=== PATIENT | male | born 1970 | race Caucasian/White ===

== ENCOUNTER 2016-12-25 19:01 | Inpatient (IN) | payer MEDICAID, MEDICARE ==
[2016-12-25] MEDS ORDERED: SODIUM CHLORIDE 0.9% 500 ML IV STA (19:48)
[2016-12-25] MEDS ORDERED: ONDANSETRON 4 MG/2 ML VIAL IVP STA (19:48)
--- NOTE | 2016-12-25 19:51 | ED ---
Nausea/Vomiting/Diarrhea HPI - General Chief complaint: Nausea/Vomiting/Diarrhea Stated complaint: vomiting Time Seen by Provider: 12/25/16 19:34 Source: patient Mode of arrival: ambulatory Limitations: no limitations - History of Present Illness Initial comments: 46-year-old male onset 3:00 in the morning of nausea. Several times no diarrhea no distinct fever or chills did not eat anywhere daughter has similar episode but they did not eat same food. Has insulin-dependent diabetes sugar was low this morning. He's had several brief chest pain lasting seconds. No shortness of breath history of atrial fibrillation on Xarelto, metoprolol 50 mg twice a day and lisinopril 20 mg daily for hypertension. Said no blood in the stool black stools. - Related Data Home Medications Medication Instructions Recorded Confirmed Lisinopril [Zestril] 5 mg PO BID 05/15/14 12/25/16 Rivaroxaban [Xarelto] 20 mg PO DAILY 05/15/14 12/25/16 Atorvastatin Calcium [Lipitor] 20 mg PO DAILY 12/25/16 12/25/16 Escitalopram Oxalate [Lexapro] 20 mg PO DAILY 12/25/16 12/25/16 Furosemide [Lasix] 20 mg PO Q48H 12/25/16 12/25/16 Insulin NPH Hum/Reg Insulin Hm 0 unit SQ AC-TID 12/25/16 12/25/16 [NovoLIN 70-30 100 UNIT/ML VIAL] Levothyroxine Sodium [Synthroid] 75 mcg PO DAILY 12/25/16 12/25/16 Previous Rx's Medication Instructions Recorded Metoprolol Tartrate [Lopressor] 50 mg PO BID #60 tab 04/27/14 Allergies Allergy/AdvReac Type Severity Reaction Status Date / Time diazepam [From Valium] Allergy Anaphylaxis Verified 12/25/16 19:52 fentanyl Allergy Anaphylaxis Verified 12/25/16 19:52 ketamine Allergy Anaphylaxis Verified 12/25/16 19:52 anesthetic Allergy Severe Anaphylaxis Uncoded 12/25/16 19:12 Review of Systems ROS Statement: Those systems with pertinent positive or pertinent negative responses have been documented in the HPI. ROS Other: All systems not noted in ROS Statement are negative. Constitutional: Denies: fever, chills Eyes: Denies: eye discharge ENT: Denies: ear pain, throat pain Respiratory: Denies: cough Cardiovascular: Reports: chest pain Gastrointestinal: Reports: nausea, vomiting. Denies: abdominal pain, diarrhea Genitourinary: Denies: urgency, frequency Skin: Denies: rash Neurological: Denies: headache Psychiatric: Denies: anxiety, depression Hematological/Lymphatic: Denies: swollen glands Past Medical History Past Medical History: Atrial Fibrillation, Diabetes Mellitus Additional Past Medical History / Comment(s): throat ca History of Any Multi-Drug Resistant Organisms: None Reported Past Surgical History: Heart Catheterization, Tonsillectomy Past Anesthesia/Blood Transfusion Reactions: Previous Problems w/ Anesthesia Past Psychological History: Depression Smoking Status: Former smoker Past Alcohol Use History: None Reported Past Drug Use History: None Reported - Past Family History Father Family Medical History: Congestive Heart Failure (CHF) Additional Family Medical History / Comment(s): pasted away from CHF Mother Family Medical History: COPD General Exam Limitations: no limitations General appearance: alert, in no apparent distress Head exam: Present: atraumatic Eye exam: Present: normal appearance, PERRL, EOMI ENT exam: Present: normal oropharynx, mucous membranes moist, TM's normal bilaterally Neck exam: Present: normal inspection Respiratory exam: Present: normal lung sounds bilaterally Cardiovascular Exam: Present: tachycardia, irregular rhythm, normal heart sounds GI/Abdominal exam: Present: soft, normal bowel sounds Neurological exam: Present: alert, CN II-XII intact Psychiatric exam: Present: normal affect, normal mood Skin exam: Present: warm, dry Course Vital Signs 12/25/16 12/25/16 12/25/16 19:10 20:09 21:32 Temperature 98.1 F 100.4 F H Pulse Rate 107 H 106 H 102 H Respiratory 20 18 16 Rate Blood Pressure 112/55 120/55 111/57 O2 Sat by Pulse 99 96 94 L Oximetry 12/25/16 22:25 Temperature Pulse Rate 96 Respiratory 20 Rate Blood Pressure 96/58 O2 Sat by Pulse 88 L Oximetry Medical Decision Making - Medical Decision Making Patient's white count was elevated developed a cough and phlegm chest x-ray shows a lower lobe pneumonia, patient's blood pressure has dropped been given fluids will admit to the covering doctor for Dr. Veliz atrial fibrillation with well-controlled rate were not able to give his metoprolol because of the blood pressure drop, he is given Rocephin and Zithromax and will be admitted - Lab Data Result diagrams: 12/25/16 21:42 12/25/16 21:42 Lab Results 12/25/16 12/25/16 12/25/16 Range/Units 19:47 19:47 21:42 WBC 21.9 H 21.1 H (3.8-10.6) k/uL RBC 5.04 4.68 (4.30-5.90) m/uL Hgb 13.8 13.5 (13.0-17.5) gm/dL Hct 44.4 40.7 (39.0-53.0) % MCV 88.0 87.0 (80.0-100.0) fL MCH 27.4 28.9 (25.0-35.0) pg MCHC 31.1 33.2 (31.0-37.0) g/dL RDW 13.2 13.2 (11.5-15.5) % Plt Count 232 195 (150-450) k/uL Neutrophils % 89 88 % Lymphocytes % 3 4 % Monocytes % 6 6 % Eosinophils % 0 0 % Basophils % 0 0 % Neutrophils # 19.6 H 18.5 H (1.3-7.7) k/uL Lymphocytes # 0.7 L 0.9 L (1.0-4.8) k/uL Monocytes # 1.3 H 1.2 H (0-1.0) k/uL Eosinophils # 0.1 0.1 (0-0.7) k/uL Basophils # 0.1 0.1 (0-0.2) k/uL Sodium 132 L (137-145) mmol/L Potassium 6.0 H (3.5-5.1) mmol/L Chloride 96 L (98-107) mmol/L Carbon Dioxide 26 (22-30) mmol/L Anion Gap 10 mmol/L BUN 25 H (9-20) mg/dL Creatinine 1.11 (0.66-1.25) mg/dL Est GFR (MDRD) Af Amer >60 (>60 ml/min/1.73 sqM) Est GFR (MDRD) Non-Af >60 (>60 ml/min/1.73 sqM) Glucose 232 H (74-99) mg/dL POC Glucose (mg/dL) (75-99) mg/dL POC Glu Range Aid ID Calcium 8.6 (8.4-10.2) mg/dL Total Bilirubin 1.1 (0.2-1.3) mg/dL AST 24 (17-59) U/L ALT 25 (21-72) U/L Alkaline Phosphatase 53 (38-126) U/L Total Creatine Kinase (55-170) U/L CK-MB (CK-2) (0.0-2.4) ng/mL CK-MB (CK-2) Rel Index Troponin I (0.000-0.034) ng/mL Total Protein 6.5 (6.3-8.2) g/dL Albumin 3.5 (3.5-5.0) g/dL Amylase <30 L (30-110) U/L Lipase 50 (23-300) U/L 12/25/16 12/25/16 12/25/16 Range/Units 21:42 21:42 21:57 WBC (3.8-10.6) k/uL RBC (4.30-5.90) m/uL Hgb (13.0-17.5) gm/dL Hct (39.0-53.0) % MCV (80.0-100.0) fL MCH (25.0-35.0) pg MCHC (31.0-37.0) g/dL RDW (11.5-15.5) % Plt Count (150-450) k/uL Neutrophils % % Lymphocytes % % Monocytes % % Eosinophils % % Basophils % % Neutrophils # (1.3-7.7) k/uL Lymphocytes # (1.0-4.8) k/uL Monocytes # (0-1.0) k/uL Eosinophils # (0-0.7) k/uL Basophils # (0-0.2) k/uL Sodium (137-145) mmol/L Potassium 5.9 H (3.5-5.1) mmol/L Chloride (98-107) mmol/L Carbon Dioxide (22-30) mmol/L Anion Gap mmol/L BUN (9-20) mg/dL Creatinine (0.66-1.25) mg/dL Est GFR (MDRD) Af Amer (>60 ml/min/1.73 sqM) Est GFR (MDRD) Non-Af (>60 ml/min/1.73 sqM) Glucose (74-99) mg/dL POC Glucose (mg/dL) 212 H (75-99) mg/dL POC Glu Range Aid ID Mattie Pradhan Calcium (8.4-10.2) mg/dL Total Bilirubin (0.2-1.3) mg/dL AST (17-59) U/L ALT (21-72) U/L Alkaline Phosphatase (38-126) U/L Total Creatine Kinase 243 H (55-170) U/L CK-MB (CK-2) 2.2 (0.0-2.4) ng/mL CK-MB (CK-2) Rel Index 0.9 Troponin I <0.012 (0.000-0.034) ng/mL Total Protein (6.3-8.2) g/dL Albumin (3.5-5.0) g/dL Amylase (30-110) U/L Lipase (23-300) U/L - EKG Data -: EKG Interpreted by Me 12/25/16 19:51 EKG 12/25/2016 1922 ventricular rate [address] interval not applicable, curious duration 82 ms QT interval 324 ms atrial fibrillation with rapid ventricular rate right superior axis deviation nonspecific ST-T abnormality Disposition Clinical Impression: Pneumonia Disposition: ADMITTED IP TO THIS HOSP Condition: Fair Referrals: Booker Veliz MD [Primary Care Provider] - 1-2 days Time of Disposition: 22:39
[2016-12-25 20:19] LABS: ALT 25 U/L (21-72); AST 24 U/L (17-59); Alkaline Phosphatase 53 U/L (38-126); Amylase <30 U/L (30-110); Anion Gap 10 mmol/L; Blood Urea Nitrogen 25 mg/dL (9-20); Calcium 8.6 mg/dL (8.4-10.2); Carbon Dioxide 26 mmol/L (22-30); Chloride 96 mmol/L (98-107); Glucose 232 mg/dL (74-99); Non-African American GFR(MDRD) >60 (>60 ml/min/1.73 sqM); Sodium 132 mmol/L (137-145); Total Bilirubin 1.1 mg/dL (0.2-1.3); Total Protein 6.5 g/dL (6.3-8.2)
[2016-12-25 20:22] LABS: Basophils # (A) 0.1 k/uL (0-0.2); Basophils % (A) 0 %; CH 28.3; CHCM 32.2; Eosinophils # (A) 0.1 k/uL (0-0.7); Eosinophils % (A) 0 %; HCT 44.4 % (39.0-53.0); HDW 2.44; HGB 13.8 gm/dL (13.0-17.5); Luc # (Auto) 0.26; Luc % (Auto) 1; Lymphocytes # (A) 0.7 k/uL (1.0-4.8); Lymphocytes % (A) 3 %; MCH 27.4 pg (25.0-35.0); MCHC 31.1 g/dL (31.0-37.0); Mean Platelet Volume 8.2; Monocytes # (A) 1.3 k/uL (0-1.0); Monocytes % (A) 6 %; Neutrophils # (A) 19.6 k/uL (1.3-7.7); Neutrophils % (A) 89 %; RBC 5.04 m/uL (4.30-5.90); RDW 13.2 % (11.5-15.5); WBC 21.9 k/uL (3.8-10.6); WBC (Perox) 22.23
[2016-12-25] MEDS ORDERED: METOPROLOL TARTRATE 50 MG TAB PO STA (21:36)
[2016-12-25] MEDS ORDERED: INSULIN LISPRO (humaLOG) 300 UNIT/3 ML VIAL SQ ONE (21:36)
[2016-12-25 21:50] LABS: Basophils # (A) 0.1 k/uL (0-0.2); Basophils % (A) 0 %; CH 28.4; CHCM 32.8; Eosinophils # (A) 0.1 k/uL (0-0.7); Eosinophils % (A) 0 %; HCT 40.7 % (39.0-53.0); HDW 2.43; HGB 13.5 gm/dL (13.0-17.5); Luc # (Auto) 0.34; Luc % (Auto) 2; Lymphocytes # (A) 0.9 k/uL (1.0-4.8); Lymphocytes % (A) 4 %; MCH 28.9 pg (25.0-35.0); MCHC 33.2 g/dL (31.0-37.0); Mean Platelet Volume 8.1; Monocytes # (A) 1.2 k/uL (0-1.0); Monocytes % (A) 6 %; Neutrophils # (A) 18.5 k/uL (1.3-7.7); Neutrophils % (A) 88 %; RBC 4.68 m/uL (4.30-5.90); RDW 13.2 % (11.5-15.5); WBC 21.1 k/uL (3.8-10.6); WBC (Perox) 20.89
--- NOTE | 2016-12-25 21:55 | XR ---
EXAMINATION TYPE: XR chest 2V DATE OF EXAM: 12/25/2016 9:47 PM COMPARISON: 04/23/2014 HISTORY: Palpitations. TECHNIQUE: Frontal and lateral views of the chest are obtained. FINDINGS: There is a patchy pneumonic consolidation in the left mid and lower lung field. The right lung is relatively clear. There is no heart failure. There are no hilar masses. Heart size is normal. There are chest leads. There is no evidence of pleural effusion. Bony thorax is intact. IMPRESSION: There is left lower lobe pneumonia that is new compared to last exam. There is probably also a small pneumonia in the right upper lobe. Normal heart.
[2016-12-25 21:59] LABS: Glucose,Whole Blood 212 mg/dL (75-99)
[2016-12-25 22:12] LABS: Creatine Kinase 243 U/L (55-170)
[2016-12-25 22:25] LABS: Creatine Kinase MB 2.2 ng/mL (0.0-2.4); Troponin I <0.012 ng/mL (0.000-0.034)
[2016-12-25] MEDS ORDERED: SODIUM CHLORIDE 0.9% 1,000 ML IV STA (22:29)
[2016-12-25] MEDS ORDERED: ALBUTEROL NEBULIZED 2.5 MG/3 ML INHALATION STA (22:38)
[2016-12-25] MEDS ORDERED: SODIUM POLYSTYRENE SULFONATE 15 GM/60 ML BOTTLE PO STA (22:54)
[2016-12-25] MEDS ORDERED: ACETAMINOPHEN TAB 325 MG TAB PO PRN (23:02)
[2016-12-25] MEDS ORDERED: NALOXONE 0.4 MG/ML 1 ML VIAL IV PRN (23:02)
[2016-12-25 23:27] LABS: Glucose,Whole Blood 215 mg/dL (75-99)
[2016-12-26] MEDS: AZITHROMYCIN 500 MG in SODIUM CHLORIDE 0.9% 250 ML IVPB SCH ×2 (00:07→23:40)
[2016-12-26 05:33] LABS: Glucose,Whole Blood 247 mg/dL (75-99)
[2016-12-26 05:44] LABS: Basophils # (A) 0.1 k/uL (0-0.2); Basophils % (A) 0 %; CH 28.1; CHCM 31.4; Eosinophils % (A) 0 %; HCT 39.8 % (39.0-53.0); HDW 2.36; HGB 12.5 gm/dL (13.0-17.5); Luc # (Auto) 0.34; Luc % (Auto) 2; Lymphocytes # (A) 0.9 k/uL (1.0-4.8); Lymphocytes % (A) 6 %; MCH 28.1 pg (25.0-35.0); MCHC 31.3 g/dL (31.0-37.0); MCV 89.8 fL (80.0-100.0); Mean Platelet Volume 7.7; Monocytes # (A) 1.1 k/uL (0-1.0); Monocytes % (A) 7 %; Neutrophils # (A) 13.4 k/uL (1.3-7.7); Neutrophils % (A) 85 %; RBC 4.43 m/uL (4.30-5.90); RDW 13.2 % (11.5-15.5); WBC 15.8 k/uL (3.8-10.6); WBC (Perox) 16.74
[2016-12-26 05:56] LABS: Anion Gap 8 mmol/L; Blood Urea Nitrogen 23 mg/dL (9-20); Calcium 8.1 mg/dL (8.4-10.2); Carbon Dioxide 29 mmol/L (22-30); Chloride 98 mmol/L (98-107); Glucose 264 mg/dL (74-99); Non-African American GFR(MDRD) >60 (>60 ml/min/1.73 sqM); Sodium 135 mmol/L (137-145)
[2016-12-26] MEDS: INSULIN LISPRO (humaLOG) 300 UNIT/3 ML VIAL SQ SCH ×4 (07:10→21:32)
[2016-12-26] MEDS: LEVOTHYROXINE 75 MCG TAB PO SCH (07:10)
[2016-12-26] MEDS: SODIUM CHLORIDE 0.9% 1,000 ML IV SCH ×2 (07:13→11:08)
[2016-12-26 07:30] LABS: Mucus,Urine Rare /hpf; Particle Count 1311; RBC,Urine 1 /hpf (0-5); WBC,Urine 2 /hpf (0-5)
[2016-12-26 07:44] LABS: Appearance,Urine Clear (Clear); Bilirubin,Urine Negative (Negative); Glucose,Urine (UA) 3+ (Negative); Ketones,Urine Negative (Negative); Leukocyte Esterase,Urine Negative (Negative); Nitrite,Urine Negative (Negative); Protein,Urine Negative (Negative); Specific Gravity,Urine 1.007 (1.001-1.035); UA Billing (MACRO vs. MICRO) CHEM; Urobilinogen,Urine <2.0 mg/dL (<2.0)
[2016-12-26] MEDS: RIVAROXABAN 10 MG TAB PO SCH (09:14)
[2016-12-26] MEDS: ATORVASTATIN 20 MG TAB PO SCH (09:14)
[2016-12-26] MEDS: ESCITALOPRAM 20 MG TAB PO SCH (09:14)
[2016-12-26 10:58] LABS: Hemoglobin A1C 11.7 % (4.2-6.1)
[2016-12-26 11:47] LABS: Glucose,Whole Blood 254 mg/dL (75-99)
--- NOTE | 2016-12-26 13:16 | P.CNPUL ---
History of Present Illness Consult date: 12/26/16 Reason for consult: pneumonia Chief complaint: Pneumonia History of present illness: 46-year-old male that I'm asked to see for nausea vomiting and diarrhea. Actually the reason for the consultation was for pneumonia. The patient really did not have much in the way of pulmonary complaints. He did have bit of chest discomfort. Not much in way of cough or shortness of breath. Not producing any phlegm. He came in primarily because of nausea. He was also having some vomiting. The patient does have a history of diabetes and also has a history of atrial fibrillation as well as hypertension. Again I think the x-ray findings of infiltrate in the left lung was was an incidental finding. Review of Systems A 12 point review of systems is mostly noted for GI complaints of noted above. He really has a possibly pulmonary complaints. Specifically, no cough no phlegm no shortness of breath no fever no chills. Past Medical History Past Medical History: Atrial Fibrillation, Heart Failure, Diabetes Mellitus, Hyperlipidemia, Sleep Apnea/CPAP/BIPAP Additional Past Medical History / Comment(s): throat ca History of Any Multi-Drug Resistant Organisms: None Reported Past Surgical History: Heart Catheterization, Tonsillectomy Additional Past Surgical History / Comment(s): BOIL REMOVED FROM TESTICLE Past Anesthesia/Blood Transfusion Reactions: Previous Problems w/ Anesthesia Past Psychological History: Depression Smoking Status: Former smoker Past Alcohol Use History: None Reported Past Drug Use History: None Reported - Past Family History Father Family Medical History: Congestive Heart Failure (CHF) Additional Family Medical History / Comment(s): pasted away from CHF Mother Family Medical History: COPD Medications and Allergies Home Medications Medication Instructions Recorded Confirmed Type Lisinopril [Zestril] 5 mg PO BID 05/15/14 12/25/16 History Rivaroxaban [Xarelto] 20 mg PO DAILY 05/15/14 12/25/16 History Atorvastatin Calcium [Lipitor] 20 mg PO DAILY 12/25/16 12/25/16 History Escitalopram Oxalate [Lexapro] 20 mg PO DAILY 12/25/16 12/25/16 History Furosemide [Lasix] 20 mg PO Q48H 12/25/16 12/25/16 History Insulin NPH Hum/Reg Insulin Hm 0 unit SQ AC-TID 12/25/16 12/25/16 History [NovoLIN 70-30 100 UNIT/ML VIAL] Levothyroxine Sodium [Synthroid] 75 mcg PO DAILY 12/25/16 12/25/16 History Allergies Allergy/AdvReac Type Severity Reaction Status Date / Time diazepam [From Valium] Allergy Anaphylaxis Verified 12/25/16 19:52 fentanyl Allergy Anaphylaxis Verified 12/25/16 19:52 ketamine Allergy Anaphylaxis Verified 12/25/16 19:52 anesthetic Allergy Severe Anaphylaxis Uncoded 12/25/16 19:12 Physical Exam Osteopathic Statement: *. No significant issues noted on an osteopathic structural exam other than those noted in the History and Physical/Consult. Vitals: Vital Signs Temp Pulse Pulse Resp BP BP Pulse Ox 12/26/16 11:40 97.3 F L 115 H 20 145/72 94 L 12/26/16 10:12 92 16 12/26/16 08:00 92 16 157/79 96 12/26/16 04:00 98.6 F 86 20 93/51 93 L 12/26/16 01:11 98.6 F 107 H 20 103/64 95 12/26/16 01:10 98.6 F 89 107 H 20 126/62 103/64 95 12/25/16 23:30 112 H 22 92/62 92 L 12/25/16 23:06 92 Intake and Output 12/25/16 12/26/16 12/26/16 21:59 06:59 14:59 Intake Total 120 Output Total 825 Balance -705 Intake: Amount of Fluid Infused ( ml) Oral 120 Output: Urine 825 Other: Voiding Method Toilet Urinal # Voids 2 Weight 167.6 kg Patient Weight 12/27/16 06:59 Weight 167.6 kg No acute distress, oriented 3. HEENT examination is unremarkable. Mucous membranes are moist. Neck supple. Full range of motion. No adenopathy. Cardiovascular examination reveals regular rhythm rate. S1-S2 normal. No S3- S4 or murmur. Pulmonary examination reveals a few scattered rhonchi. No wheezes. No crackles. Breath sounds are equal. Abdomen obese. Bowel sounds are heard. Extremities are intact. Results - Laboratory Findings CBC and BMP: 12/26/16 05:28 12/26/16 05:28 Abnormal lab findings: Abnormal Labs 12/25/16 12/26/16 12/26/16 23:11 05:00 05:28 WBC Hgb Neutrophils # Lymphocytes # Monocytes # Sodium BUN Glucose POC Glucose (mg/dL) 215 H Hemoglobin A1c 11.7 H Calcium Urine Glucose (UA) 3+ H Urine Mucus Rare H 12/26/16 12/26/16 12/26/16 05:28 05:28 05:31 WBC 15.8 H Hgb 12.5 L Neutrophils # 13.4 H Lymphocytes # 0.9 L Monocytes # 1.1 H Sodium 135 L BUN 23 H Glucose 264 H POC Glucose (mg/dL) 247 H Hemoglobin A1c Calcium 8.1 L Urine Glucose (UA) Urine Mucus 12/26/16 11:44 WBC Hgb Neutrophils # Lymphocytes # Monocytes # Sodium BUN Glucose POC Glucose (mg/dL) 254 H Hemoglobin A1c Calcium Urine Glucose (UA) Urine Mucus - Diagnostic Findings Chest x-ray: image reviewed (Abdomen x-rays labs and medications are reviewed) Assessment and Plan (1) Hypertension Status: Acute (2) Pneumonia Status: Acute (3) Atrial fibrillation, rapid Status: Acute Plan: Plan The patient's medications x-rays and labs are all reviewed. I'll review the medications to make sure they're appropriate. The patient looks very stable. Could probably be transferred down to the general medical floor. We'll allow the primary make a decision about that. He was admitted to Dr. Benavides service. No respiratory distress at this time. Time with Patient: Greater than 30
[2016-12-26] MEDS ORDERED: FUROSEMIDE 20 MG TAB PO SCH (14:00)
[2016-12-26] MEDS ORDERED: FUROSEMIDE 10 MG/ML 4 ML VIAL IV SCH (14:30)
--- NOTE | 2016-12-26 15:09 | HP ---
DATE OF ADMISSION: Chief complaints are nausea and weakness and occasional cough. HISTORY OF PRESENT ILLNESS: This 46-year-old gentleman with a past history of multiple medical problems including atrial fibrillation, history of CHF, diabetes mellitus type 2, history of hyperlipidemia, history of sleep apnea, history of throat cancer, history of tonsillectomy, history of cardiac catheterization, history of depression, history of nicotine dependence being followed by Dr. Veliz in the outpatient setting is also having uncontrolled blood sugars. The patient was apparently consulting with endocrinology. Sugars are getting better according to him; however, the patient is having bilateral leg pains and patient also had nausea. Patient went to the ER. Patient also has some cough and sputum also. The patient admitted for further evaluation and treatment. The patient was found to be hypotensive. Patient also had atrial fibrillation with fast ventricular rate and the chest x-ray showed evidence of pneumonia, more on the left side and patient admitted for further evaluation and treatment. No history of any fever, rigor or chills. No history of headache, loss of consciousness. At this time white count is elevated at 15.8 after admission. Blood sugars are also elevated. The patient also found to be hypertension in the ER, but improved later. PAST MEDICAL HISTORY: Diabetes mellitus type 2 brittle, history of CHF, history of atrial fibrillation, history of hyperlipidemia, history of sleep apnea, history of throat cancer, history of cardiac catheterization, history of depression, nicotine dependence. Medications prior to admission: 1. Synthroid 75 mcg p.o. daily. 2. Novolin 70/30 a.c. t.i.d. 3. Lexapro 20 mg p.o. daily. 4. Lipitor 20 mg p.o. daily. 5. Xarelto 20 mg daily. 6. Lopressor 50 mg p.o. b.i.d. 7. Cefzil 5 mg p.o. b.i.d. 8. Lasix 20 mg q.48 hours. Allergies are VALIUM, FENTANYL, KETAMINE, and ANESTHETIC. FAMILY HISTORY: History of CHF in the family. SOCIAL HISTORY: Previous history of smoking, no history of alcohol intake. REVIEW OF SYSTEMS: ENT: No diminished hearing or vision. CARDIOVASCULAR: As mentioned earlier. GI: No nausea. : No history of dysuria. NERVOUS SYSTEM: No numbness or weakness. ALLERGY/IMMUNOLOGY: No asthma or hayfever. MUSCULOSKELETAL: As mentioned earlier. HEMATOLOGY/ONCOLOGY: As mentioned earlier. ENDOCRINE: As mentioned earlier. CONSTITUTIONAL: As mentioned earlier. DERMATOLOGY: Negative. ONCOLOGY: Negative. PSYCHIATRY: As mentioned earlier. PHYSICAL EXAM: Alert and oriented x3. Pulse 115 irregular, blood pressure 140/72, respirations 20, temperature is 97.3, pulse ox 94% on 3 L. HEENT: Conjunctivae normal, oral mucosal moist. NECK: No jugular venous distension, no thyromegaly, no lymph node enlargement, obese. CARDIOVASCULAR SYSTEM: S1, S2, muffled, no S3, no S4. RESPIRATORY: Breast sounds diminished at the bases. A few scattered rhonchi, no crackles. No bronchial breath sounds heard. Abdomen is soft, obese, nontender, no mass palpable. EXTREMITIES: Legs no edema, no swelling. NERVOUS SYSTEM: Higher functions as mentioned earlier. Cranial nerves 2 through 12 grossly intact. Moves all 4 limbs. No focal motor or sensory deficits. LYMPHATICS: No lymph node enlargement in the neck, axillae or groin. SKIN: No ulcerations/bleeding. JOINTS: No active deformity. LABS: WBC is 15.8, hemoglobin is 12.5, glucose noted. Chest x-ray noted. ASSESSMENT: 1. Possibly bilateral pneumonia, left more than the right, possibly gram-negative or community-acquired with sepsis. 2. Increased WBC. 3. Atrial fibrillation with fast ventricular rate. 4. Normocytic anemia. 5. Diabetes mellitus type 2, uncontrolled blood sugar with hemoglobin A1c 11.7. 6. Super morbid obesity with body mass index of 51.5. 7. Depression. 8. History of atrial fibrillation. 9. History of congestive heart failure. 10. History of hyperlipidemia. 11. History of sleep apnea. 12. History of throat cancer and PEG tube insertion, previously. 13. Remote history of nicotine dependence. 14. FULL CODE. RECOMMENDATION: In this 46-year-old gentleman who presented with multiple complex medical issues, will monitor the patient closely. Continue with the current medication. Continue with the symptomatic treatment and rest of the home medications. Monitor blood sugars closely, beta blockers, cardiology consultations, will IV antibiotics. Patient was started on azithromycin and Rocephin. Will obtain the cultures and continue to monitor. Further recommendations to follow. A copy of this will be forwarded to Dr. Veliz who is the primary physician. ASHLEY
[2016-12-26 16:58] LABS: Glucose,Whole Blood 258 mg/dL (75-99)
[2016-12-26] MEDS: IPRATROPIUM 0.5 MG/2.5 ML NEBU INHALATION SCH (20:14)
[2016-12-26] MEDS: LEVALBUTEROL NEB (CONC) 1.25 MG/0.5 ML AMP INHALATION SCH (20:14)
[2016-12-26 20:56] LABS: Glucose,Whole Blood 259 mg/dL (75-99)
[2016-12-26] MEDS: METOPROLOL TARTRATE 50 MG TAB PO SCH (21:33)
[2016-12-27 06:23] LABS: Glucose,Whole Blood 253 mg/dL (75-99)
[2016-12-27 06:29] LABS: Basophils # (A) 0.1 k/uL (0-0.2); Basophils % (A) 1 %; CHCM 31.1; Eosinophils # (A) 0.2 k/uL (0-0.7); Eosinophils % (A) 1 %; HCT 41.1 % (39.0-53.0); HDW 2.42; HGB 12.6 gm/dL (13.0-17.5); Hypochromasia Slight; Luc # (Auto) 0.34; Luc % (Auto) 3; Lymphocytes # (A) 0.9 k/uL (1.0-4.8); Lymphocytes % (A) 7 %; MCH 27.7 pg (25.0-35.0); MCHC 30.7 g/dL (31.0-37.0); MCV 90.4 fL (80.0-100.0); Monocytes # (A) 0.9 k/uL (0-1.0); Monocytes % (A) 7 %; Neutrophils # (A) 10.7 k/uL (1.3-7.7); Neutrophils % (A) 82 %; RBC 4.54 m/uL (4.30-5.90); RDW 13.1 % (11.5-15.5); WBC (Perox) 13.29
[2016-12-27 06:36] LABS: Anion Gap 10 mmol/L; Blood Urea Nitrogen 14 mg/dL (9-20); Calcium 8.4 mg/dL (8.4-10.2); Carbon Dioxide 27 mmol/L (22-30); Chloride 98 mmol/L (98-107); Glucose 291 mg/dL (74-99); Non-African American GFR(MDRD) >60 (>60 ml/min/1.73 sqM); Potassium 4.7 mmol/L (3.5-5.1); Sodium 135 mmol/L (137-145)
[2016-12-27] MEDS: LEVOTHYROXINE 75 MCG TAB PO SCH (07:13)
[2016-12-27] MEDS: INSULIN NPH/REG INSULIN 70/30 300 UNIT/3 ML VIAL SQ SCH ×2 (07:13→17:13)
[2016-12-27] MEDS: INSULIN LISPRO (humaLOG) 300 UNIT/3 ML VIAL SQ SCH ×4 (07:14→21:37)
[2016-12-27] MEDS: LEVALBUTEROL NEB (CONC) 1.25 MG/0.5 ML AMP INHALATION SCH ×3 (07:59→20:11)
[2016-12-27] MEDS: IPRATROPIUM 0.5 MG/2.5 ML NEBU INHALATION SCH ×3 (07:59→20:11)
--- NOTE | 2016-12-27 08:51 | P.CRDCN ---
History of Present Illness Consult date: 12/27/16 Requesting physician: Orlin Benavides Consult reason: atrial fibrillation Chief complaint: Nausea and bilateral feet burning History of present illness: This is a 46-year-old gentleman who follows with Dr. Alonso in the office. He has a known history of diabetes, hypertension, obesity, history of laryngeal CA family history of coronary artery disease, paroxysmal atrial fibrillation for which the patient has undergone elective cardioversion in the past, nonischemic Cardiomyopathy. Patient did undergo a cardiac catheterization in April 2014 which revealed normal coronary arteries with severely impaired left ventricular systolic function. He presents to the hospital mainly with complaints of dry heaves and associated bilateral feet numbness and tingling. Patient states she's also been having an occasional cough, productive of green sputum. He denies any overt shortness of breath, no chest discomfort. EKG on admission showed atrial fibrillation with a rapid ventricular response. Chest x-ray reveals left lower lobe pneumonia new from prior exam, patient is currently on IV antibiotics. Laboratory data was reviewed, WBC 21,000 on admission, 13,000 this morning. Potassium on admission 5.9, 4.7 this morning. BUN 14, creatinine 0.7. Blood sugars on admission to 32 , 291 this morning. Hemoglobin A1c 11.7. Troponin 0.012. Temperature on admission 100.4, blood pressure on admission 112/50, blood pressure this morning 134/70 temperature 98.2, atrial fibrillation with a heart rate of 116. The patient was initiated on IV antibiotics as well as IV Lasix on admission here. His weight today is down 3 kg from admission. At the time of my examination this morning, patient denies any shortness of breath, still has occasional cough, occasional fluttering in the chest. Past Medical History Past Medical History: Atrial Fibrillation, Heart Failure, Diabetes Mellitus, Hyperlipidemia, Sleep Apnea/CPAP/BIPAP Additional Past Medical History / Comment(s): throat ca History of Any Multi-Drug Resistant Organisms: None Reported Past Surgical History: Heart Catheterization, Tonsillectomy Additional Past Surgical History / Comment(s): BOIL REMOVED FROM TESTICLE Past Anesthesia/Blood Transfusion Reactions: Previous Problems w/ Anesthesia Past Psychological History: Depression Smoking Status: Former smoker Past Alcohol Use History: None Reported Past Drug Use History: None Reported - Past Family History Father Family Medical History: Congestive Heart Failure (CHF) Additional Family Medical History / Comment(s): pasted away from CHF Mother Family Medical History: COPD Medications and Allergies Home Medications Medication Instructions Recorded Confirmed Type Lisinopril [Zestril] 5 mg PO BID 05/15/14 12/25/16 History Rivaroxaban [Xarelto] 20 mg PO DAILY 05/15/14 12/25/16 History Atorvastatin Calcium [Lipitor] 20 mg PO DAILY 12/25/16 12/25/16 History Escitalopram Oxalate [Lexapro] 20 mg PO DAILY 12/25/16 12/25/16 History Furosemide [Lasix] 20 mg PO Q48H 12/25/16 12/25/16 History Insulin NPH Hum/Reg Insulin Hm 0 unit SQ AC-TID 12/25/16 12/25/16 History [NovoLIN 70-30 100 UNIT/ML VIAL] Levothyroxine Sodium [Synthroid] 75 mcg PO DAILY 12/25/16 12/25/16 History Allergies Allergy/AdvReac Type Severity Reaction Status Date / Time diazepam [From Valium] Allergy Anaphylaxis Verified 12/25/16 19:52 fentanyl Allergy Anaphylaxis Verified 12/25/16 19:52 ketamine Allergy Anaphylaxis Verified 12/25/16 19:52 anesthetic Allergy Severe Anaphylaxis Uncoded 12/25/16 19:12 Physical Exam Vitals: Vital Signs Temp Pulse Resp BP Pulse Ox 12/27/16 04:00 98.2 F 116 H 20 134/79 96 12/27/16 00:00 97.3 F L 83 20 143/77 96 12/26/16 23:02 96 12/26/16 20:00 97.2 F L 104 H 20 155/82 96 12/26/16 16:00 98.2 F 110 H 18 131/72 95 12/26/16 12:00 115 H 20 12/26/16 11:40 97.3 F L 115 H 20 145/72 94 L 12/26/16 10:12 92 16 Intake and Output 12/26/16 12/27/16 12/27/16 22:59 06:59 14:59 Intake Total 600 180 Output Total 3900 4900 Balance -3900 -4300 180 Intake: Oral 600 180 Output: Urine 3900 4900 Other: Voiding Method Toilet Toilet Urinal Urinal # Voids 1 1 # Bowel Movements 1 Weight 167.6 kg 164.6 kg PHYSICAL EXAMINATION: HEENT: Head is atraumatic, normocephalic. Pupils equal, round. Neck is supple. There is no elevated jugular venous pressure. HEART EXAMINATION: Heart S1 and S2 irregularly irregular systolic ejection murmur is heard CHEST EXAMINATION: On's are clear with fine crackles to bilateral bases ABDOMEN: Soft, obese, nontender. Bowel sounds are heard. No organomegaly noted. EXTREMITIES: 1+ peripheral pulses with trace evidence of peripheral edema and no calf tenderness noted. NEUROLOGIC patient is awake, alert and oriented -3. . Results 12/27/16 06:04 12/27/16 06:04 CBC 12/27/16 Range/Units 06:04 WBC 13.0 H (3.8-10.6) k/uL RBC 4.54 (4.30-5.90) m/uL Hgb 12.6 L (13.0-17.5) gm/dL Hct 41.1 (39.0-53.0) % Plt Count 194 (150-450) k/uL Comprehensive Metabolic Panel 12/27/16 Range/Units 06:04 Sodium 135 L (137-145) mmol/L Potassium 4.7 (3.5-5.1) mmol/L Chloride 98 (98-107) mmol/L Carbon Dioxide 27 (22-30) mmol/L BUN 14 (9-20) mg/dL Creatinine 0.70 (0.66-1.25) mg/dL Glucose 291 H (74-99) mg/dL Calcium 8.4 (8.4-10.2) mg/dL Current Medications Generic Name Dose Route Start Last Admin Trade Name Mateusq PRN Reason Stop Dose Admin Acetaminophen 650 mg 12/25/16 23:02 Tylenol Tab PO Q6HR PRN Mild Pain or Fever > 100.5 Atorvastatin Calcium 20 mg 12/26/16 09:00 12/26/16 09:14 Lipitor PO 20 mg DAILY [facility] Administration Escitalopram Oxalate 20 mg 12/26/16 09:00 12/26/16 09:14 Lexapro PO 20 mg DAILY [facility] Administration Furosemide 40 mg 12/26/16 14:30 12/26/16 16:23 Lasix IV 40 mg DAILY [facility] Administration Azithromycin 500 mg/ Sodium 250 mls @ 125 mls/hr 12/26/16 00:00 12/26/16 23: 40 Chloride IVPB 125 mls/hr HS [facility] Administration Ceftriaxone Sodium 1,000 mg/ 50 mls @ 100 mls/hr 12/26/16 21:00 12/26/16 21: 31 Sodium Chloride IVPB 100 mls/hr HS [facility] Administration Insulin Human Isoph/Insulin Regular 60 unit 12/27/16 07:30 12/27/16 07:13 Humulin 70/30 Vial SQ 60 unit AC-BRKFST [facility] Administration Insulin Human Isoph/Insulin Regular 40 unit 12/27/16 17:30 Humulin 70/30 Vial SQ AC-SUPPER [facility] Insulin Human Lispro 0 unit 12/26/16 07:30 12/27/16 07:14 Humalog SQ 9 unit ACHS [facility] Administration Protocol Ipratropium [place] 0.5 mg 12/26/16 20:00 12/27/16 07:59 Atrovent Nebulized INHALATION Not Given RT-TID [facility] Levalbuterol HCl 1.25 mg 12/26/16 20:00 12/27/16 07:59 Xopenex Nebulized (Conc) INHALATION Not Given RT-TID [facility] Levothyroxine Sodium 75 mcg 12/26/16 06:30 12/27/16 07:13 Synthroid PO 75 mcg 0630 [facility] Administration Metoprolol Tartrate 50 mg 12/26/16 21:00 12/26/16 21:33 Lopressor PO 50 mg BID [facility] Administration Naloxone HCl 0.2 mg 12/25/16 23:02 Narcan IV Q2M PRN Opioid Reversal Rivaroxaban 20 mg 12/26/16 09:00 12/26/16 09:14 Xarelto PO 20 mg DAILY [facility] Administration Intake and Output 12/26/16 12/27/16 12/27/16 22:59 06:59 14:59 Intake Total 600 180 Output Total 3900 4900 Balance -3900 -4300 180 Intake: Oral 600 180 Output: Urine 3900 4900 Other: Voiding Method Toilet Toilet Urinal Urinal # Voids 1 1 # Bowel Movements 1 Weight 167.6 kg 164.6 kg 12/27/16 06:04 12/27/16 06:04 EKG Interpretations (text) EKG on admission showed atrial fibrillation with rapid ventricular response. Assessment and Plan Plan: Assessment and plan #1 symptoms of nausea with associated dry heaves #2 symptoms of productive cough of green sputum, evidence of new left lower lobe pneumonia on chest x-ray. Patient is currently on IV antibiotics. Low- grade temperature and elevated white blood cell count on admission. #3 atrial fibrillation with rapid ventricular response #4 history of paroxysmal atrial fibrillation, on Xarelto at home for anticoagulation. Number 5 hypertension #6 hyperlipidemia #7 diabetes #8 obesity #9 nonischemic cardiomyopathy #10 history of laryngeal CA Plan We will obtain an echocardiogram with Doppler study. Obtain BNP level. Discontinue IV Lasix and put the patient back on oral diuretics. Resume Xarelto. Continue metoprolol tartrate 50 mg 1 tablet by mouth twice a day. Check free T4 and TSH level. Further recommendations to follow. DNP note has been reviewed, I agree with a documented findings and plan of care. Patient was seen and examined.
[2016-12-27] MEDS: RIVAROXABAN 10 MG TAB PO SCH (09:36)
[2016-12-27] MEDS: METOPROLOL TARTRATE 50 MG TAB PO SCH ×2 (09:36→20:27)
[2016-12-27] MEDS: FUROSEMIDE 40 MG TAB PO SCH (09:36)
[2016-12-27] MEDS: ESCITALOPRAM 20 MG TAB PO SCH (09:36)
[2016-12-27] MEDS: ATORVASTATIN 20 MG TAB PO SCH (09:36)
--- NOTE | 2016-12-27 10:34 | XR ---
EXAMINATION TYPE: XR chest 2V DATE OF EXAM: 12/27/2016 10:13 AM COMPARISON: NONE HISTORY: Pneumonia follow-up TECHNIQUE: Frontal and lateral views of the chest are obtained. FINDINGS: Patchy airspace infiltrates persist although appear to be improved throughout the left mid and left lower lung zones as well as the right lung base and right upper lobe. Cardiac mediastinal s ilhouette is unremarkable. IMPRESSION: Persistent but improving pneumonic infiltrates.
--- NOTE | 2016-12-27 10:50 | P.PN ---
Subjective 46-year-old male patient admitted for a left lung pneumonia. I'm seeing him today in follow-up. Mr. Hernandez is doing much better. He is less short of breath. He is still coughing at his cough is dry and is not producing much of sputum. He is on a combination of Rocephin and Zithromax. On today's chest x- ray there is improving but not completely resolved left lung pneumonia. No fever. No chills. No night sweats. No side effects with antibiotic treatment. Objective - Vital Signs Vital signs: Vital Signs Temp 97.7 F 12/27/16 08:30 Pulse 105 H 12/27/16 08:30 Resp 16 12/27/16 08:30 BP 124/60 12/27/16 08:30 Pulse Ox 93 L 12/27/16 08:30 Intake & Output 12/26/16 12/27/16 12/27/16 18:59 06:59 18:59 Intake Total 120 600 180 Output Total 4175 6300 700 Balance -4055 -5700 -520 Weight 167.6 kg 164.6 kg Intake: Oral 120 600 180 Output: Urine 4175 6300 700 Other: Voiding Method Toilet Toilet Urinal Urinal # Voids 1 1 # Bowel Movements 1 - Exam Head exam was generally normal. There was no scleral icterus or corneal arcus. Mucous membranes were moist.Neck was supple and without jugular venous distension, thyromegaly, or carotid bruits. Carotids were easily palpable bilaterally. There was no adenopathy. Scars of previous radiation therapy over the anterior neck. Patient has a Mallampati class IV with significant crowding of the posterior oropharynx. Lung sounds are diminished in lung bases bilaterally especially on the left.Cardiac exam revealed the PMI to be normally situated and sized. The rhythm was regular and no extrasystoles were noted during several minutes of auscultation. The first and second heart sounds were normal and physiologic splitting of the second heart sound was noted. There were no murmurs, rubs, clicks, or gallops.Abdominal exam revealed normal bowel sounds. The abdomen was soft, non-tender, and without masses, organomegaly, or appreciable enlargement of the abdominal aorta. Patient is obese and orders cannot be accurately palpated.Examination of the extremities revealed easily palpable radial, femoral and pedal pulses. There was no cyanosis, clubbing or edema. - Labs CBC & Chem 7: 12/27/16 06:04 12/27/16 06:04 Labs: Abnormal Lab Results - Last 24 Hours (Table) 12/26/16 12/26/16 12/26/16 Range/Units 05:28 11:44 16:50 WBC (3.8-10.6) k/uL Hgb (13.0-17.5) gm/dL MCHC (31.0-37.0) g/dL Neutrophils # (1.3-7.7) k/uL Lymphocytes # (1.0-4.8) k/uL Sodium (137-145) mmol/L Glucose (74-99) mg/dL POC Glucose (mg/dL) 254 H 258 H (75-99) mg/dL Hemoglobin A1c 11.7 H (4.2-6.1) % Magnesium (1.6-2.3) mg/dL 12/26/16 12/27/16 12/27/16 Range/Units 20:54 06:04 06:04 WBC 13.0 H (3.8-10.6) k/uL Hgb 12.6 L (13.0-17.5) gm/dL MCHC 30.7 L (31.0-37.0) g/dL Neutrophils # 10.7 H (1.3-7.7) k/uL Lymphocytes # 0.9 L (1.0-4.8) k/uL Sodium 135 L (137-145) mmol/L Glucose 291 H (74-99) mg/dL POC Glucose (mg/dL) 259 H (75-99) mg/dL Hemoglobin A1c (4.2-6.1) % Magnesium (1.6-2.3) mg/dL 12/27/16 12/27/16 Range/Units 06:04 06:21 WBC (3.8-10.6) k/uL Hgb (13.0-17.5) gm/dL MCHC (31.0-37.0) g/dL Neutrophils # (1.3-7.7) k/uL Lymphocytes # (1.0-4.8) k/uL Sodium (137-145) mmol/L Glucose (74-99) mg/dL POC Glucose (mg/dL) 253 H (75-99) mg/dL Hemoglobin A1c (4.2-6.1) % Magnesium 1.5 L (1.6-2.3) mg/dL Assessment and Plan Plan: Impression 1 Left lung pneumonia, multi lobar, improving clinically and radiographically and the patient is still on a combination of Rocephin and Zithromax 2 morbid obesity 3 obstructive sleep apnea non-tolerating CPAP therapy 4 diabetes mellitus 5 hypertension 6 laryngeal cancer with previous chemoradiation therapy 7 paroxysmal atrial fibrillation 8 non ischemic cardiomyopathy Plan I am very pleased to report that the patient's pneumonia is improving. I would however suggest keeping him on IV antibiotics for another 24 hours and repeat his chest x-ray in the morning. If things continue to improve, the patient can be discharged home in a.m. on oral antibiotics. He is agreeable to this plan.
[2016-12-27] MEDS ORDERED: Magnesium Replacement Protocol 1 EACH MISC MISCELLANE PRN (10:59)
--- NOTE | 2016-12-27 11:23 | ECHOF ---
Referral Reason:afib MEASUREMENTS -------- HEIGHT: 182.9 cm WEIGHT: 164.2 kg BP: IVSd: 1.2 cm (0.6 - 1.1) LVIDd: 5.2 cm (3.9 - 5.3) LVPWd: 1.3 cm (0.6 - 1.1) IVSs: 1.6 cm LVIDs: 3.8 cm LVPWs: 1.4 cm Ao Diam: 3.5 cm (2.0 - 3.7) AV Cusp: 2.6 cm (1.5 - 2.6) LA Diam: 4.2 cm (2.7 - 3.8) RAP: 5.00 mmHg RVSP: 8.99 mmHg FINDINGS -------- Atrial fibrillation. This was a technically difficult study with suboptimal views. There is mild concentric left ventricular hypertrophy. Overall left ventricular systolic function is mild-moderately impaired with, an EF between 40 - 45 %. The RV was not well visualized. The left atrium is mildly dilated. The right atrium was not well visualized. 1.5mg of Definity was utilized for enhancement of images The aortic valve was not well visualized. There is trace mitral regurgitation. Trace tricuspid regurgitation present. The right ventricular systolic pressure, as measured by Doppler, is 8.99mmHg. Pulmonic valve appears structurally normal. The pericardium is normal. CONCLUSIONS -------- 1. Atrial fibrillation. 2. There is trace mitral regurgitation. 3. Trace tricuspid regurgitation present. 4. The right ventricular systolic pressure, as measured by Doppler, is 8.99mmHg. 5. Pulmonic valve appears structurally normal. 6. The pericardium is normal. 7. This was a technically difficult study with suboptimal views. 8. There is mild concentric left ventricular hypertrophy. 9. Overall left ventricular systolic function is mild-moderately impaired with, an EF between 40 - 45 %. 10. The RV was not well visualized. 11. The left atrium is mildly dilated. 12. The right atrium was not well visualized. 13. 1.5mg of Definity was utilized for enhancement of images 14. The aortic valve was not well visualized. CAMPAIGN WORKER: Ellen Torres RDCS
[2016-12-27 11:59] LABS: Glucose,Whole Blood 243 mg/dL (75-99)
[2016-12-27] MEDS: MAGNESIUM SULFATE-D5W PMX 1 GM in DEXTROSE/WATER 1 100ML.BAG IVPB SCH ×2 (12:10→13:52)
[2016-12-27 13:59] VITALS: BMI 50.5
[2016-12-27 17:09] LABS: Glucose,Whole Blood 210 mg/dL (75-99)
[2016-12-27] MEDS: AZITHROMYCIN 500 MG TAB PO SCH (20:28)
[2016-12-27 21:06] LABS: Glucose,Whole Blood 243 mg/dL (75-99)
--- NOTE | 2016-12-27 21:48 | PN ---
DATE OF SERVICE: 12/27/2016 This 46-year-old gentleman who was admitted with bibasilar pneumonia is being closely monitored. Patient had atrial fibrillation with fast ventricular rate, also present on admission. The patient was also seen by multiple consultants, including Dr. Flores and Cardiology. The pneumonia is predominantly in the left lung. IV antibiotics have been recommended. A 2-D echo with Doppler done today showed ejection fraction of 40% to 45% with mild to moderate systolic function impairment. Past medical history reviewed. REVIEW OF SYSTEMS: CARDIOVASCULAR SYSTEM: As mentioned earlier. RESPIRATORY SYSTEM: As mentioned earlier. GI: No nausea. : No dysuria. NERVOUS SYSTEM: No numbness or weakness. ALLERGY/IMMUNOLOGY: No asthma, hayfever. MUSCULOSKELETAL: As mentioned earlier. No history of anemia. ENDOCRINE: As mentioned earlier. PHYSICAL EXAMINATION: Alert and oriented x3. Pulse 105, blood pressure 120/60, respiratory rate 16, temperature 97.7, pulse ox 93% on room air. HEENT: Conjunctivae normal. NECK: No jugular venous distention. No carotid bruit. No lymph node enlargement. CARDIOVASCULAR SYSTEM: S1, S2 muffled. No S3. No S4. RESPIRATORY SYSTEM: Breath sounds diminished at the bases. A few scattered rhonchi and crackles. ABDOMEN: Soft, obese. Non-tender. No mass palpable. LEGS: No edema. No swelling. NERVOUS SYSTEM: Higher functions as mentioned earlier. Moves all 4 limbs. No focal motor or sensory deficit. LYMPHATICS: No lymph node palpable in neck, axillae or groin. SKIN: No ulcer, rash, bleeding. LABS: WBC 13, hemoglobin 12.6. Sodium 135. Magnesium is 1.5. ASSESSMENT: 1. Bilateral pneumonia, left more than the right; possibly Gram-negative or community-acquired with sepsis, present on admission. 2. Increased white count. 3. Atrial fibrillation with fast ventricular rate, present on admission. 4. Normocytic anemia. 5. Diabetes mellitus, type 2, uncontrolled, with hemoglobin A1C of 11.7. 6. Super morbid obesity with a body mass index of 51.5. 7. Depression. 8. History of atrial fibrillation. 9. History of congestive heart failure with chronic systolic dysfunction; ejection fraction 40% to 45%. 10. History of hyperlipidemia. 11. History of sleep apnea. 12. History of throat cancer and PEG tube insertion previously. 13. Remote history of nicotine dependence. 14. FULL CODE. RECOMMENDATIONS AND DISCUSSION: In this 46-year-old gentleman who presented with multiple complex medical issues, we will monitor the patient closely, continue the current medications, continue with symptomatic treatment. Will continue with bronchodilators and empiric antibiotics. Xarelto has been continued. I would also recommend increased ambulation. Monitor blood sugars closely. Guarded prognosis because of multiple complex medical issues. Further recommendations to follow.
[2016-12-28 06:15] LABS: Glucose,Whole Blood 170 mg/dL (75-99)
[2016-12-28 06:30] LABS: Basophils # (A) 0.1 k/uL (0-0.2); Basophils % (A) 1 %; CH 28.4; CHCM 31.5; Eosinophils # (A) 0.4 k/uL (0-0.7); Eosinophils % (A) 4 %; HDW 2.46; HGB 12.9 gm/dL (13.0-17.5); Luc # (Auto) 0.28; Luc % (Auto) 3; Lymphocytes # (A) 0.9 k/uL (1.0-4.8); Lymphocytes % (A) 9 %; MCH 29.2 pg (25.0-35.0); MCHC 32.3 g/dL (31.0-37.0); MCV 90.4 fL (80.0-100.0); Mean Platelet Volume 8.3; Monocytes # (A) 0.6 k/uL (0-1.0); Monocytes % (A) 6 %; Neutrophils # (A) 7.7 k/uL (1.3-7.7); Neutrophils % (A) 77 %; RBC 4.43 m/uL (4.30-5.90); RDW 13.1 % (11.5-15.5); WBC 9.9 k/uL (3.8-10.6); WBC (Perox) 10.14
[2016-12-28 06:44] LABS: Anion Gap 9 mmol/L; Blood Urea Nitrogen 13 mg/dL (9-20); Calcium 8.7 mg/dL (8.4-10.2); Carbon Dioxide 31 mmol/L (22-30); Chloride 97 mmol/L (98-107); Glucose 202 mg/dL (74-99); Magnesium 1.7 mg/dL (1.6-2.3); Non-African American GFR(MDRD) >60 (>60 ml/min/1.73 sqM); Potassium 4.3 mmol/L (3.5-5.1); Sodium 137 mmol/L (137-145)
[2016-12-28] MEDS: INSULIN LISPRO (humaLOG) 300 UNIT/3 ML VIAL SQ SCH ×4 (06:58→21:20)
[2016-12-28] MEDS: LEVOTHYROXINE 75 MCG TAB PO SCH (06:58)
[2016-12-28] MEDS: INSULIN NPH/REG INSULIN 70/30 300 UNIT/3 ML VIAL SQ SCH ×2 (07:11→17:17)
[2016-12-28] MEDS: MAGNESIUM SULFATE-D5W PMX 1 GM in DEXTROSE/WATER 1 100ML.BAG IVPB SCH ×2 (08:45→10:36)
[2016-12-28] MEDS: ESCITALOPRAM 20 MG TAB PO SCH (08:46)
[2016-12-28] MEDS: METOPROLOL TARTRATE 50 MG TAB PO SCH ×2 (08:46→20:33)
[2016-12-28] MEDS: FUROSEMIDE 40 MG TAB PO SCH (08:46)
[2016-12-28] MEDS: ATORVASTATIN 20 MG TAB PO SCH (08:46)
[2016-12-28] MEDS: RIVAROXABAN 10 MG TAB PO SCH (08:46)
[2016-12-28] MEDS: LEVALBUTEROL NEB (CONC) 1.25 MG/0.5 ML AMP INHALATION SCH ×3 (08:52→19:54)
[2016-12-28] MEDS: IPRATROPIUM 0.5 MG/2.5 ML NEBU INHALATION SCH ×3 (08:52→19:54)
--- NOTE | 2016-12-28 10:29 | XR ---
EXAMINATION TYPE: XR chest 2V DATE OF EXAM: 12/28/2016 10:24 AM COMPARISON: 12/27/2016 INDICATION: Pneumonia TECHNIQUE: Single frontal view of the chest is obtained. FINDINGS: The heart size is normal. The pulmonary vasculature is normal. There is improvement of the infiltrate. Some scattered infiltrate may remain the left base. IMPRESSION: 1. Improving left lower lobe infiltrate.
[2016-12-28 11:55] LABS: Glucose,Whole Blood 234 mg/dL (75-99)
[2016-12-28 12:08] VITALS: RESP 18
--- NOTE | 2016-12-28 15:32 | P.PN ---
Subjective This is a very pleasant 46-year-old gentleman who was admitted with complaints of increasing shortness of breath, cough and congestion. He is found to have a left lung pneumonia and was being treated for the same. His been maintained on Rocephin and azithromycin. He is seen again today 12/28/2016 in follow-up on the selective care unit. He is awake and alert in no acute distress. He is breathing better today as compared to yesterday but not quite back to his baseline. Most recent chest x-ray revealed improvement of the left lung pneumonia but not completely resolved. Objective - Vital Signs Vital signs: Vital Signs Temp 97.7 F 12/28/16 08:44 Pulse 70 12/28/16 11:55 Resp 18 12/28/16 11:55 BP 109/53 12/28/16 11:55 Pulse Ox 92 L 12/28/16 11:55 Intake & Output 12/27/16 12/28/16 12/28/16 18:59 06:59 18:59 Intake Total 1020 660 480 Output Total 2100 1000 2400 Balance -[facility] -340 -1920 Weight 164.6 kg 163.1 kg Intake: IV 60 0.9% NS FLUSH' 10 cefTRIAXone 1,000 mg In 50 Sodium Chloride 0.9% 50 ml @ 100 mls/hr IVPB [facility] Rx#:[id number] Oral 1020 600 480 Output: Urine 2100 1000 2400 Other: Voiding Method Toilet Toilet Toilet Urinal Urinal Urinal - Exam Head exam was generally normal. There was no scleral icterus or corneal arcus. Mucous membranes were moist.Neck was supple and without jugular venous distension, thyromegaly, or carotid bruits. Carotids were easily palpable bilaterally. There was no adenopathy. Scars of previous radiation therapy over the anterior neck. Patient has a Mallampati class IV with significant crowding of the posterior oropharynx. Lung sounds are diminished in lung bases bilaterally especially on the left.Cardiac exam revealed the PMI to be normally situated and sized. The rhythm was regular and no extrasystoles were noted during several minutes of auscultation. The first and second heart sounds were normal and physiologic splitting of the second heart sound was noted. There were no murmurs, rubs, clicks, or gallops.Abdominal exam revealed normal bowel sounds. The abdomen was soft, non-tender, and without masses, organomegaly, or appreciable enlargement of the abdominal aorta. Patient is obese and orders cannot be accurately palpated.Examination of the extremities revealed easily palpable radial, femoral and pedal pulses. There was no cyanosis, clubbing or edema. - Labs CBC & Chem 7: 12/28/16 05:45 12/28/16 05:45 Labs: Abnormal Lab Results - Last 24 Hours (Table) 12/27/16 12/27/16 12/28/16 Range/Units 16:54 21:04 05:45 Hgb 12.9 L (13.0-17.5) gm/dL Lymphocytes # 0.9 L (1.0-4.8) k/uL Chloride (98-107) mmol/L Carbon Dioxide (22-30) mmol/L Glucose (74-99) mg/dL POC Glucose (mg/dL) 210 H 243 H (75-99) mg/dL 12/28/16 12/28/16 12/28/16 Range/Units 05:45 06:14 11:43 Hgb (13.0-17.5) gm/dL Lymphocytes # (1.0-4.8) k/uL Chloride 97 L (98-107) mmol/L Carbon Dioxide 31 H (22-30) mmol/L Glucose 202 H (74-99) mg/dL POC Glucose (mg/dL) 170 H 234 H (75-99) mg/dL Assessment and Plan Plan: Impression 1 Left lung pneumonia, multi lobar, improving clinically and radiographically and the patient is still on a combination of Rocephin and Zithromax 2 morbid obesity 3 obstructive sleep apnea non-tolerating CPAP therapy 4 diabetes mellitus 5 hypertension 6 laryngeal cancer with previous chemoradiation therapy 7 paroxysmal atrial fibrillation, anticoagulated with Xarelto. 8 non ischemic cardiomyopathy Plan 1 The patient was seen and evaluated by Dr. Flores. He is improved today as compared to yesterday. He could be discharged home later today or perhaps tomorrow morning. We'll continue with his current antibiotics. We'll increase his activity as tolerated. He could follow-up in our office in 1-2 weeks' time we'll repeat a chest x-ray then.
[2016-12-28 16:48] LABS: Glucose,Whole Blood 213 mg/dL (75-99)
--- NOTE | 2016-12-28 17:56 | PN ---
DATE OF SERVICE: 12/28/2016 This 46-year-old gentleman who was admitted with bilateral pneumonia is improving significantly. No chest pain, no palpitations. Patient is on IV antibiotic. No fever. Occasional cough is reported. On exam, alert and oriented x3. Pulse is 70, blood pressure 109/53, respirations 18, temperature 97.7, pulse ox 92% on room air. HEENT: Conjunctivae normal. Oral mucosa moist. NECK: No jugular venous distention. No carotid bruit. No lymph node enlargement. CARDIOVASCULAR: S1 and S2, muffled. No S3, no S4. RESPIRATORY: Breath sounds diminished at the bases. A few scattered rhonchi, no crackles. ABDOMEN: Soft, nontender. LEGS: No edema, no swelling. NERVOUS SYSTEM: No focal deficits. LABS: Hemoglobin 12.9. Accu-Cheks noted. ASSESSMENT: 1. Bilateral pneumonia, left more than the right, possibly gram-negative or community care with sepsis present on admission. 2. Increased WBC. 3. Atrial fibrillation with fast ventricular rate present on admission. 4. Normocytic anemia. 5. Diabetes mellitus type 2, uncontrolled with hemoglobin A1c 11.7. 6. Super morbid obesity with body mass index of 51.5. 7. Depression. 8. History of atrial fibrillation. 9. History of congestive heart failure with chronic systolic dysfunction, ejection fraction 40% to 45%. 10. History of hyperlipidemia. 11. History of sleep apnea. 12. History of throat cancer and PEG tube insertion previously. 13. Remote history of nicotine dependence. 14. FULL CODE. RECOMMENDATIONS AND DISCUSSION: I recommend to continue the current medications, continue monitoring and symptomatic treatment. Otherwise at this time I recommend to continue with IV antibiotics, IV Rocephin and Zithromax. Closely follow with Dr. Flores. Continue the rest of the medications. Guarded prognosis. Further recommendations to follow.
[2016-12-28] MEDS: AZITHROMYCIN 500 MG TAB PO SCH (20:32)
--- NOTE | 2016-12-28 20:37 | PN ---
The patient was admitted with pneumonia. Patient has chronic atrial fibrillation. Patient is doing fairly well. Patient is afebrile. Blood pressure is 140/59 mmHg. Heart rate is 70 per minute. First and second heart sounds are normal. Bilateral rhonchi are noted. Patient's heart rate is under control. We will continue the current medications. Patient is going to be discharged home tomorrow.
[2016-12-28 21:06] LABS: Glucose,Whole Blood 271 mg/dL (75-99)
[2016-12-29 05:45] LABS: Glucose,Whole Blood 199 mg/dL (75-99)
[2016-12-29 06:17] LABS: Basophils # (A) 0.1 k/uL (0-0.2); Basophils % (A) 1 %; CH 28.3; CHCM 31.6; Eosinophils # (A) 0.4 k/uL (0-0.7); Eosinophils % (A) 5 %; HCT 45.3 % (39.0-53.0); HDW 2.51; HGB 14.2 gm/dL (13.0-17.5); Luc # (Auto) 0.23; Luc % (Auto) 3; Lymphocytes % (A) 11 %; MCH 28.2 pg (25.0-35.0); MCHC 31.3 g/dL (31.0-37.0); MCV 90.1 fL (80.0-100.0); Mean Platelet Volume 7.4; Monocytes # (A) 0.7 k/uL (0-1.0); Monocytes % (A) 8 %; Neutrophils # (A) 6.4 k/uL (1.3-7.7); Neutrophils % (A) 73 %; RBC 5.03 m/uL (4.30-5.90); RDW 13.1 % (11.5-15.5); WBC 8.8 k/uL (3.8-10.6); WBC (Perox) 8.86
[2016-12-29 06:29] LABS: Anion Gap 11 mmol/L; Blood Urea Nitrogen 12 mg/dL (9-20); Calcium 9.2 mg/dL (8.4-10.2); Carbon Dioxide 31 mmol/L (22-30); Chloride 96 mmol/L (98-107); Glucose 211 mg/dL (74-99); Magnesium 1.4 mg/dL (1.6-2.3); Non-African American GFR(MDRD) >60 (>60 ml/min/1.73 sqM); Potassium 4.7 mmol/L (3.5-5.1); Sodium 138 mmol/L (137-145)
[2016-12-29] MEDS ORDERED: Magnesium Replacement Protocol 1 EACH MISC MISCELLANE PRN (06:53)
[2016-12-29] MEDS: INSULIN LISPRO (humaLOG) 300 UNIT/3 ML VIAL SQ SCH ×2 (06:59→12:13)
[2016-12-29] MEDS: LEVOTHYROXINE 75 MCG TAB PO SCH (06:59)
[2016-12-29] MEDS: INSULIN NPH/REG INSULIN 70/30 300 UNIT/3 ML VIAL SQ SCH (07:00)
[2016-12-29] MEDS: LEVALBUTEROL NEB (CONC) 1.25 MG/0.5 ML AMP INHALATION SCH ×2 (08:04→12:12)
[2016-12-29] MEDS: IPRATROPIUM 0.5 MG/2.5 ML NEBU INHALATION SCH ×2 (08:04→12:04)
[2016-12-29] MEDS: MAGNESIUM SULFATE-D5W PMX 1 GM in DEXTROSE/WATER 1 100ML.BAG IVPB SCH ×3 (09:09→12:13)
[2016-12-29] MEDS: ATORVASTATIN 20 MG TAB PO SCH (09:10)
[2016-12-29] MEDS: FUROSEMIDE 40 MG TAB PO SCH (09:10)
[2016-12-29] MEDS: RIVAROXABAN 10 MG TAB PO SCH (09:10)
[2016-12-29] MEDS: METOPROLOL TARTRATE 50 MG TAB PO SCH (09:10)
[2016-12-29] MEDS: ESCITALOPRAM 20 MG TAB PO SCH (09:10)
[2016-12-29 09:17] VITALS: PULSE 85
[2016-12-29 11:53] LABS: Glucose,Whole Blood 261 mg/dL (75-99)
[2016-12-29 12:21] VITALS: BP 127/85; TEMP 98.4
--- NOTE | 2016-12-29 16:19 | P.PN ---
Subjective This is a very pleasant 46-year-old gentleman who was admitted with complaints of increasing shortness of breath, cough and congestion. He is found to have a left lung pneumonia and was being treated for the same. His been maintained on Rocephin and azithromycin. He is seen again today 12/28/2016 in follow-up on the selective care unit. He is awake and alert in no acute distress. He is breathing better today as compared to yesterday but not quite back to his baseline. Most recent chest x-ray revealed improvement of the left lung pneumonia but not completely resolved. The patient is seen again today 12/29/2016 in follow-up. He is awake and alert in no acute distress. He denies any worsening shortness of breath, cough or congestion. He is anxious to go home. Objective - Vital Signs Vital signs: Vital Signs Temp 98.4 F 12/29/16 12:00 Pulse 85 12/29/16 12:00 Resp 18 12/29/16 12:00 BP 127/85 12/29/16 12:00 Pulse Ox 93 L 12/29/16 12:00 Intake & Output 12/28/16 12/29/16 12/29/16 18:59 06:59 18:59 Intake Total 900 1870 600 Output Total 2600 2700 1600 Balance -1700 -830 -1000 Weight 160.4 kg Intake: IV 70 0.9% NS FLUSH' 20 cefTRIAXone 1,000 mg In 50 Sodium Chloride 0.9% 50 ml @ 100 mls/hr IVPB HS PILO Rx#:[id number] Oral 900 1800 600 Output: Urine 2600 2700 1600 Other: Voiding Method Toilet Toilet Urinal Urinal # Voids 3 - Exam Head exam was generally normal. There was no scleral icterus or corneal arcus. Mucous membranes were moist.Neck was supple and without jugular venous distension, thyromegaly, or carotid bruits. Carotids were easily palpable bilaterally. There was no adenopathy. Scars of previous radiation therapy over the anterior neck. Patient has a Mallampati class IV with significant crowding of the posterior oropharynx. Lung sounds are diminished in lung bases bilaterally especially on the left.Cardiac exam revealed the PMI to be normally situated and sized. The rhythm was regular and no extrasystoles were noted during several minutes of auscultation. The first and second heart sounds were normal and physiologic splitting of the second heart sound was noted. There were no murmurs, rubs, clicks, or gallops.Abdominal exam revealed normal bowel sounds. The abdomen was soft, non-tender, and without masses, organomegaly, or appreciable enlargement of the abdominal aorta. Patient is obese and orders cannot be accurately palpated.Examination of the extremities revealed easily palpable radial, femoral and pedal pulses. There was no cyanosis, clubbing or edema. - Labs CBC & Chem 7: 12/29/16 05:43 12/29/16 05:43 Labs: Abnormal Lab Results - Last 24 Hours (Table) 12/28/16 12/28/16 12/29/16 Range/Units 16:29 21:05 05:42 Chloride (98-107) mmol/L Carbon Dioxide (22-30) mmol/L Glucose (74-99) mg/dL POC Glucose (mg/dL) 213 H 271 H 199 H (75-99) mg/dL Magnesium (1.6-2.3) mg/dL 12/29/16 12/29/16 Range/Units 05:43 11:24 Chloride 96 L (98-107) mmol/L Carbon Dioxide 31 H (22-30) mmol/L Glucose 211 H (74-99) mg/dL POC Glucose (mg/dL) 261 H (75-99) mg/dL Magnesium 1.4 L (1.6-2.3) mg/dL Microbiology - Last 24 Hours (Table) 12/28/16 19:00 Gram Stain - Preliminary Sputum Assessment and Plan Plan: Impression 1 Left lung pneumonia, multi lobar, improving clinically and radiographically and the patient is still on a combination of Rocephin and Zithromax 2 morbid obesity 3 obstructive sleep apnea non-tolerating CPAP therapy 4 diabetes mellitus 5 hypertension 6 laryngeal cancer with previous chemoradiation therapy 7 paroxysmal atrial fibrillation, anticoagulated with Xarelto. 8 non ischemic cardiomyopathy Plan The patient was seen and evaluated by Dr. Flores. He is cleared for discharge from the pulmonary standpoint. He could complete his course of antibiotics in the form of Levaquin. He'll be seen in our office in 1 week's time and we'll repeat his chest x-ray then. He is however encouraged to call sooner with any worsening of symptoms or other questions or concerns.
--- NOTE | 2016-12-30 08:00 | DS ---
DATE OF ADMISSION: 12/25/2016 DATE OF DISCHARGE: 12/29/2016 FINAL DIAGNOSES: 1. Bilateral pneumonia, left more than the right, possibly gram-negative with sepsis, present on admission. 2. Increased WBC. 3. Atrial fibrillation with fast ventricular rate, present on admission. 4. Normocytic anemia. 5. Diabetes mellitus type 2, uncontrolled with hemoglobin 11.7. 6. Super morbid obesity with a body mass index 51.5. 7. Depression. 8. History of atrial fibrillation. 9. History of congestive heart failure with chronic systolic dysfunction, ejection fraction 40% to 45%. 10. History of hyperlipidemia. 11. History of sleep apnea. 12. History of throat cancer and PEG tube insertion previously. 13. Remote history nicotine dependence. 14. FULL CODE. HISTORY OF PRESENT ILLNESS: This 46-year-old gentleman with a past medical history of multiple medical problems was admitted with pneumonia. Patient treated with antibiotics. Cardiology saw the patient also, medications adjusted. Patient improved significantly. On exam, vitals are stable. CARDIOVASCULAR SYSTEM: S1, S2, muffled. RESPIRATORY: A few rhonchi. ABDOMEN: Soft. NERVOUS SYSTEM: No focal deficits. DISCHARGE ADVICE: 1. Diet is cardiac. 2. Activity limited until followup. 3. Follow up with Dr. Veliz in 2 to 3 days. 4. Follow up with Dr. Flores and Dr. Alonso as recommended. Medications will be: 1. Albuterol 2 puffs q.4 and p.r.n. 2. Lipitor 20 mg p.o. daily. 3. Lexapro 20 mg p.o. daily. 4. Lasix 40 mg p.o. daily. 5. Insulin NPH 70/30 forty units subQ a.c. supper and 6 units subQ a.c. breakfast. 6. Levaquin 500 mg p.o. daily for 5 days. 7. Synthroid 75 mcg p.o. daily. 8. Zestril 5 mg p.o. daily. 9. Lopressor 50 mg p.o. b.i.d. 10. Xarelto 20 mg p.o. daily. 11. Prednisone 40 mg daily for 3 days, 30 mg daily for 3 days, 20 for 3 days, 10 for 3 days and discontinue. Once again, the patient will be discharged in a stable condition with guarded prognosis.
== END 2016-12-29 16:46 | disposition home or self-care (01) | DRG 871 ==
LOC: EC 19:01 → 6SEL 23:02
PROVIDERS: ADMIT Hospitalist; ATTEND Hospitalist
DX: A41.9 Sepsis, unspecified organism (principal); J18.9 Pneumonia, unspecified organism; I42.8 Other cardiomyopathies; I50.22 Chronic systolic (congestive) heart failure; Z68.43 Body mass index [BMI] 50.0-59.9, adult; I48.0 Paroxysmal atrial fibrillation; E66.01 Morbid (severe) obesity due to excess calories; E11.65 Type 2 diabetes mellitus with hyperglycemia; D64.9 Anemia, unspecified; I10 Essential (primary) hypertension; F32.9 Major depressive disorder, single episode, unspecified; E78.5 Hyperlipidemia, unspecified; G47.33 Obstructive sleep apnea (adult) (pediatric); I48.2 Chronic atrial fibrillation; Z79.01 Long term (current) use of anticoagulants; Z79.4 Long term (current) use of insulin; Z79.899 Other long term (current) drug therapy; Z82.49 Family history of ischemic heart disease and other diseases of the circulatory system; Z82.5 Family history of asthma and other chronic lower respiratory diseases; Z87.891 Personal history of nicotine dependence; Z92.3 Personal history of irradiation; Z92.21 Personal history of antineoplastic chemotherapy; Z85.21 Personal history of malignant neoplasm of larynx
CPT/HCPCS: 36415; 71020; 80048; 80053; 81003; 82150; 82550; 82553; 83036; 83605; 83690; 83735; 83880; 84132; 84443; 84484; 85025; 87040; 87070; 87205; 87502; 93005; 93306; 94640; 94760; 96361; 96365; 96367; 96375; 99285